=== PATIENT | female | born 1990 | race Caucasian/White ===

== ENCOUNTER 2016-12-17 09:49 | Emergency (ER) | payer MEDICAID, OTHER ==
[~2016-12-17] VITALS: Ht 165.1 cm; Wt 100.0 kg
[2016-12-17] MEDS ORDERED: SODIUM CHLORIDE 0.9% 1,000 ML IV ONE (10:15)
[2016-12-17 10:31] LABS: BASOPHILS % (AUTO) 0.4 % (0.0-2.0); EOSINOPHILS % (AUTO) 0.3 % (1.0-6.0); HEMATOCRIT 42.8 % (36-46); HEMOGLOBIN 13.8 g/dL (12.0-16.0); LYMPHOCYTES # (AUTO) 0.8 K/uL (1.0-4.8); LYMPHOCYTES % (AUTO) 11.2 % (22.0-44.0); MEAN CORPUSCULAR HEMOGLOBIN 27.5 pg (26.0-34.0); MEAN CORPUSCULAR HGB CONC 32.2 G/dL (31.0-37.0); MEAN CORPUSCULAR VOLUME 85 fL (80-100); MONOCYTES # (AUTO) 0.4 K/uL (0.1-1.0); MONOCYTES % (AUTO) 5.5 % (2.0-9.0); NEUTROPHILS # (AUTO) 5.9 K/uL (1.8-7.7); NEUTROPHILS % (AUTO) 82.6 % (40.0-70.0); PLATELET COUNT (AUTO) 295 K/uL (150-450); RED BLOOD CELL COUNT(AUTO) 5.01 MIL/uL (4.00-5.20); RED CELL DISTRIBUTION WIDTH 12.7 % (11.5-14.5); WHITE BLOOD COUNT (AUTO) 7.2 K/uL (4.5-11.0)
[2016-12-17 10:48] LABS: ANION GAP 9 mmol/L (8-16); CALCIUM, TOTAL 8.5 mg/dL (8.8-10.5); CARBON DIOXIDE 27 mmol/L (22-29); CHLORIDE 100 mmol/L (98-107); CREATININE 1.04 mg/dL (0.60-1.30); GLOMERULAR FILTR. RATE CALC > 60 mL/min (>60); SODIUM SERUM 136 mmol/L (136-145); UREA NITROGEN, BLOOD 9 mg/dL (7-18)
[2016-12-17 10:52] LABS: ALANINE AMINOTRANSFERASE 39 U/L (12-78); ALBUMIN 3.7 g/dL (3.4-5.0); ASPARTATE AMINOTRANSFERASE 22 U/L (15-37); BILIRUBIN,TOTAL 0.3 mg/dL (0.1-1.0); TOTAL PROTEIN, SERUM 7.8 g/dL (6.4-8.2)
[2016-12-17] MEDS ORDERED: MECLIZINE HCL 25 MG TABLET PO ONE (11:00)
[2016-12-17 11:11] LABS: APPEARANCE,URINE CLOUDY (CLEAR); GLUCOSE, URINE (UA) NEGATIVE (NEGATIVE); KETONES,URINE NEGATIVE (NEGATIVE); LEUKOCYTE ESTERASE ,URINE SMALL (NEGATIVE); OCCULT BLOOD,URINE TRACE (NEGATIVE); PROTEIN,URINE NEGATIVE (NEGATIVE)
[2016-12-17 11:20] LABS: ADD UA MICROSCOPIC YES
[2016-12-17 11:24] LABS: RBC,URINE 0-2 /HPF (0-2); SQUAMOUS EPITHELIAL CELL,UR Many /LPF (None Seen)
[2016-12-17] MEDS ORDERED: KETOROLAC TROMETHAMINE 60 MG/2 ML VIAL IM ONE (13:00)
[2016-12-17 13:02] VITALS: BP 102/58
[2016-12-17] MEDS ORDERED: KETOROLAC TROMETHAMINE 30 MG/ML VIAL IVP ONE (13:15)
[2016-12-17] MEDS ORDERED: ACETAMINOPHEN 500 MG TABLET PO ONE (14:00)
== END 2016-12-17 13:57 | disposition home or self-care (01) ==
LOC: EMS 09:50
DX: H81.313 Aural vertigo, bilateral (principal)
CPT/HCPCS: 36415; 70450; 80053; 81001; 84703; 85025; 93005; 96361; 96374; 99285; J1885; J7030

== ENCOUNTER 2017-02-24 08:23 | Emergency (ER) | payer OTHER ==
[~2017-02-24] VITALS: Ht 162.6 cm; Wt 127.0 kg
[2017-02-24] MEDS ORDERED: ONDANSETRON HCL 4 MG/2 ML VIAL IVP ONE (08:45)
[2017-02-24] MEDS ORDERED: SODIUM CHLORIDE 0.9% 1,000 ML IV ONE (08:45)
[2017-02-24] MEDS ORDERED: DIPHENOXYLATE/ATROP 2.5-0.025 MG TABLET PO ONE (08:45)
[2017-02-24 08:56] LABS: BASOPHILS # (AUTO) 0.04 K/uL (0.00-0.20); BASOPHILS % (AUTO) 0.5 % (0.0-2.0); EOSINOPHILS # (AUTO) 0.06 K/uL (0.00-0.70); EOSINOPHILS % (AUTO) 0.69 % (1.0-6.0); HEMATOCRIT 39.2 % (36-46); HEMOGLOBIN 13.1 g/dL (12.0-16.0); LYMPHOCYTES # (AUTO) 2.4 K/uL (1.0-4.8); LYMPHOCYTES % (AUTO) 28.2 % (22.0-44.0); MEAN CORPUSCULAR HEMOGLOBIN 28.4 pg (26.0-34.0); MEAN CORPUSCULAR HGB CONC 33.4 G/dL (31.0-37.0); MEAN CORPUSCULAR VOLUME 85 fL (80-100); MONOCYTES # (AUTO) 0.7 K/uL (0.1-1.0); MONOCYTES % (AUTO) 7.6 % (2.0-9.0); NEUTROPHILS # (AUTO) 5.4 K/uL (1.8-7.7); NEUTROPHILS % (AUTO) 63.1 % (40.0-70.0); PLATELET COUNT (AUTO) 307 K/uL (150-450); RED CELL DISTRIBUTION WIDTH 13.5 % (11.5-14.5); WHITE BLOOD COUNT (AUTO) 8.6 K/uL (4.5-11.0)
[2017-02-24 09:12] LABS: ANION GAP 10 mmol/L (8-16); CALCIUM, TOTAL 8.8 mg/dL (8.8-10.5); CARBON DIOXIDE 28 mmol/L (22-29); CHLORIDE 103 mmol/L (98-107); CREATININE 0.84 mg/dL (0.60-1.30); GLOMERULAR FILTR. RATE CALC > 60 mL/min (>60); POTASSIUM 3.3 mmol/L (3.5-5.1); SODIUM SERUM 141 mmol/L (136-145); UREA NITROGEN, BLOOD 7 mg/dL (7-18)
[2017-02-24 09:19] LABS: ALANINE AMINOTRANSFERASE 37 U/L (12-78); ALBUMIN 3.3 g/dL (3.4-5.0); ASPARTATE AMINOTRANSFERASE 23 U/L (15-37); BILIRUBIN,TOTAL 0.4 mg/dL (0.1-1.0); TOTAL PROTEIN, SERUM 7.5 g/dL (6.4-8.2)
[2017-02-24 10:52] LABS: APPEARANCE,URINE CLOUDY (CLEAR); GLUCOSE, URINE (UA) NEGATIVE (NEGATIVE); KETONES,URINE NEGATIVE (NEGATIVE); LEUKOCYTE ESTERASE ,URINE SMALL (NEGATIVE); OCCULT BLOOD,URINE NEGATIVE (NEGATIVE); PROTEIN,URINE NEGATIVE (NEGATIVE)
[2017-02-24 10:54] LABS: ADD UA MICROSCOPIC YES
[2017-02-24 10:57] LABS: RBC,URINE 0-2 /HPF (0-2); SQUAMOUS EPITHELIAL CELL,UR Many /LPF (None Seen)
[2017-02-24 11:38] VITALS: BP 107/69
== END 2017-02-24 13:36 | disposition home or self-care (01) ==
LOC: EMS 08:25
DX: R11.10 Vomiting, unspecified (principal); R19.7 Diarrhea, unspecified; R10.30 Lower abdominal pain, unspecified; R10.31 Right lower quadrant pain
CPT/HCPCS: 36415; 80053; 81001; 83690; 84703; 85025; 87086; 96361; 96374; 99285; J2405; J7030

== ENCOUNTER 2017-04-11 20:17 | Emergency (ER) | payer OTHER ==
[~2017-04-11] VITALS: Ht 162.6 cm; Wt 109.1 kg
[2017-04-11 20:56] LABS: BASOPHILS % (AUTO) 0.7 % (0.0-2.0); EOSINOPHILS % (AUTO) 0.6 % (1.0-6.0); LYMPHOCYTES # (AUTO) 2.9 K/uL (1.0-4.8); LYMPHOCYTES % (AUTO) 26.6 % (22.0-44.0); MEAN CORPUSCULAR HEMOGLOBIN 28.1 pg (26.0-34.0); MEAN CORPUSCULAR HGB CONC 33.3 G/dL (31.0-37.0); MEAN CORPUSCULAR VOLUME 84 fL (80-100); MONOCYTES # (AUTO) 0.4 K/uL (0.1-1.0); MONOCYTES % (AUTO) 3.6 % (2.0-9.0); NEUTROPHILS # (AUTO) 7.5 K/uL (1.8-7.7); NEUTROPHILS % (AUTO) 68.5 % (40.0-70.0); PLATELET COUNT (AUTO) 386 K/uL (150-450); RED BLOOD CELL COUNT(AUTO) 4.97 MIL/uL (4.00-5.20)
[2017-04-11 21:04] LABS: ANION GAP 9 mmol/L (8-16); CARBON DIOXIDE 30 mmol/L (22-29); CHLORIDE 103 mmol/L (98-107); CREATININE 0.86 mg/dL (0.60-1.30); GLOMERULAR FILTR. RATE CALC > 60 mL/min (>60); POTASSIUM 3.8 mmol/L (3.5-5.1); SODIUM SERUM 142 mmol/L (136-145); UREA NITROGEN, BLOOD 8 mg/dL (7-18)
[2017-04-11 21:10] LABS: ALANINE AMINOTRANSFERASE 36 U/L (12-78); ALBUMIN 3.8 g/dL (3.4-5.0); ASPARTATE AMINOTRANSFERASE 17 U/L (15-37); BILIRUBIN,TOTAL 0.2 mg/dL (0.1-1.0)
[2017-04-11 22:06] VITALS: BP 117/75
[2017-04-11] MEDS ORDERED: ONDANSETRON HCL 4 MG TABLET PO ONE (22:15)
== END 2017-04-11 22:36 | disposition home or self-care (01) ==
LOC: EMS 20:17
DX: R42 Dizziness and giddiness (principal); R11.2 Nausea with vomiting, unspecified; R63.0 Anorexia
CPT/HCPCS: 36415; 80053; 84703; 85025; 93005; 99285; Q0162

== ENCOUNTER 2017-11-23 02:00 | Observation (INO) | payer MEDICAID, OTHER ==
[~2017-11-23] VITALS: Ht 160 cm
[2017-11-23 03:01] LABS: APPEARANCE,URINE CLOUDY (CLEAR); BILIRUBIN,URINE NEGATIVE (NEGATIVE); GLUCOSE, URINE (UA) NEGATIVE (NEGATIVE); KETONES,URINE NEGATIVE (NEGATIVE); LEUKOCYTE ESTERASE ,URINE SMALL (NEGATIVE); NITRATE,URINE NEGATIVE (NEGATIVE); OCCULT BLOOD,URINE NEGATIVE (NEGATIVE); PH,URINE 6.5 (5.0-8.0); PROTEIN,URINE NEGATIVE (NEGATIVE); UROBILINOGEN,URINE 0.2 mg/dL (<=1.0)
[2017-11-23] MEDS ORDERED: RINGERS SOLUTION,LACTATED 1,000 ML IV ONE (03:06)
[2017-11-23] MEDS ORDERED: RINGERS SOLUTION,LACTATED 1,000 ML IV SCH (03:15)
[2017-11-23 03:20] LABS: AMORPHOUS SEDIMENT,UR Few /LPF (None Seen); BACTERIA,URINE Rare /HPF (None Seen); RBC,URINE 0-2 /HPF (0-2); SQUAMOUS EPITHELIAL CELL,UR Moderate /LPF (None Seen)
[2017-11-23] MEDS ORDERED: BUPIVACAINE HCL/PF 0.5% 10 ML VIAL ONE (03:32)
[2017-11-23 04:00] VITALS: BP 114/71
[2017-11-23] MEDS ORDERED: PREN1TAB80 PO (04:02)
== END 2017-11-23 05:10 | disposition home or self-care (01) ==
LOC: 4S 02:00
PROVIDERS: ADMIT Obstetrics & Gynecology; ATTEND Obstetrics & Gynecology
DX: O26.893 Other specified pregnancy related conditions, third trimester (principal); R10.13 Epigastric pain; M54.9 Dorsalgia, unspecified; O21.0 Mild hyperemesis gravidarum; Z3A.29 29 weeks gestation of pregnancy
CPT/HCPCS: 59025; 76705; 76805; 80307 ×8; 81001; 96360; 96361; G0378; J3490; J7120

== ENCOUNTER 2018-11-10 07:50 | Emergency (ER) | payer MEDICAID, OTHER ==
[~2018-11-10] VITALS: Ht 165.1 cm; Wt 109.1 kg
[~2018-11-10 07:50] MED LIST: PREN1TAB80 PO
[2018-11-10] MEDS ORDERED: KETOROLAC TROMETHAMINE 60 MG/2 ML VIAL IM ONE (09:15)
[2018-11-10 10:43] VITALS: BP 102/84
== END 2018-11-10 10:45 | disposition home or self-care (01) ==
LOC: EMS 07:52
DX: R07.89 Other chest pain (principal); R05 Cough
CPT/HCPCS: 71046; 96372; 99283; J1885

== ENCOUNTER 2019-03-16 22:04 | Emergency (ER) | payer MEDICAID | END 2019-03-17 01:40 | disposition left against medical advice (07) | LOC: EMS 22:06 | DX: R10.9 Unspecified abdominal pain (principal); R42 Dizziness and giddiness; Z53.21 Procedure and treatment not carried out due to patient leaving prior to being seen by health care provider ==

== ENCOUNTER 2019-08-16 11:03 | Emergency (ER) | payer MEDICAID, OTHER ==
[~2019-08-16] VITALS: Ht 162.6 cm; Wt 121.4 kg
[2019-08-16] MEDS ORDERED: IBUP-2271 PO (11:13)
[2019-08-16 13:12] LABS: BASOPHILS % (AUTO) 0.6 % (0.0-2.0); EOSINOPHILS % (AUTO) 1.2 % (1.0-6.0); HEMATOCRIT 37.7 % (36-46); HEMOGLOBIN 12.3 g/dL (12.0-16.0); LYMPHOCYTES % (AUTO) 29.7 % (22.0-44.0); MEAN CORPUSCULAR HEMOGLOBIN 24.8 pg (26.0-34.0); MEAN CORPUSCULAR HGB CONC 32.5 G/dL (31.0-37.0); MEAN CORPUSCULAR VOLUME 76 fL (80-100); MONOCYTES # (AUTO) 0.6 K/uL (0.1-1.0); MONOCYTES % (AUTO) 6.1 % (2.0-9.0); NEUTROPHILS # (AUTO) 6.3 K/uL (1.8-7.7); NEUTROPHILS % (AUTO) 62.4 % (40.0-70.0); PLATELET COUNT (AUTO) 429 K/uL (150-450); RED BLOOD CELL COUNT(AUTO) 4.95 MIL/uL (4.00-5.20); RED CELL DISTRIBUTION WIDTH 15.8 % (11.5-14.5)
[2019-08-16 14:22] VITALS: BP 139/85
== END 2019-08-16 15:13 | disposition left against medical advice (07) ==
LOC: EMS 11:05
DX: N93.9 Abnormal uterine and vaginal bleeding, unspecified (principal); Z53.21 Procedure and treatment not carried out due to patient leaving prior to being seen by health care provider

== ENCOUNTER 2019-08-30 17:04 | Emergency (ER) | payer OTHER ==
[~2019-08-30] VITALS: Ht 165.1 cm; Wt 127.3 kg
[~2019-08-30 17:04] MED LIST changes: +IBUP-2271 PO; -PREN1TAB80 PO
[2019-08-30] MEDS ORDERED: KETOROLAC TROMETHAMINE 60 MG/2 ML VIAL IM ONE (17:30)
[2019-08-30 18:30] VITALS: BP 109/68
== END 2019-08-30 18:32 | disposition home or self-care (01) ==
LOC: EMS 17:04
DX: S92.512A Displaced fracture of proximal phalanx of left lesser toe(s), initial encounter for closed fracture (principal); Z90.49 Acquired absence of other specified parts of digestive tract; Z98.890 Other specified postprocedural states; W10.8XXA Fall (on) (from) other stairs and steps, initial encounter; Y93.01 Activity, walking, marching and hiking; Y92.89 Other specified places as the place of occurrence of the external cause; Y99.8 Other external cause status
CPT/HCPCS: 73630; 96372; 99283; J1885

== ENCOUNTER 2019-12-31 17:45 | Emergency (ER) | payer OTHER ==
[~2019-12-31] VITALS: Ht 165.1 cm; Wt 125.5 kg
[2019-12-31] MEDS ORDERED: SODIUM CHLORIDE 0.9% 1,000 ML IV ONE (19:15)
[2019-12-31 19:19] LABS: BASOPHILS % (AUTO) 0.8 % (0.0-2.0); HEMATOCRIT 38.3 % (36-46); HEMOGLOBIN 12.4 g/dL (12.0-16.0); LYMPHOCYTES # (AUTO) 3.6 K/uL (1.0-4.8); LYMPHOCYTES % (AUTO) 35.4 % (22.0-44.0); MEAN CORPUSCULAR HEMOGLOBIN 24.6 pg (26.0-34.0); MEAN CORPUSCULAR HGB CONC 32.3 G/dL (31.0-37.0); MEAN CORPUSCULAR VOLUME 76 fL (80-100); MONOCYTES # (AUTO) 0.5 K/uL (0.1-1.0); MONOCYTES % (AUTO) 5.3 % (2.0-9.0); NEUTROPHILS # (AUTO) 5.8 K/uL (1.8-7.7); NEUTROPHILS % (AUTO) 57.5 % (40.0-70.0); PLATELET COUNT (AUTO) 393 K/uL (150-450); RED BLOOD CELL COUNT(AUTO) 5.03 MIL/uL (4.00-5.20); RED CELL DISTRIBUTION WIDTH 15.4 % (11.5-14.5)
[2019-12-31 19:31] LABS: ANION GAP 9 mmol/L (8-16); CALCIUM, TOTAL 8.9 mg/dL (8.8-10.5); CARBON DIOXIDE 30 mmol/L (22-29); CHLORIDE 100 mmol/L (98-107); CREATININE 0.79 mg/dL (0.60-1.30); GLOMERULAR FILTR. RATE CALC > 60 mL/min (>60); GLUCOSE,RANDOM 112 mg/dL (70-110); POTASSIUM 3.9 mmol/L (3.5-5.1); SODIUM SERUM 139 mmol/L (136-145); UREA NITROGEN, BLOOD 8 mg/dL (7-18)
[2019-12-31 19:51] LABS: B-TYPE NATRIURETIC PEPTIDE 13 pg/mL (0-100)
[2019-12-31 19:59] LABS: ALANINE AMINOTRANSFERASE 42 U/L (12-78); ALBUMIN 3.6 g/dL (3.4-5.0); ALKALINE PHOSPHATASE 63 U/L (46-116); ASPARTATE AMINOTRANSFERASE 20 U/L (15-37); BILIRUBIN,TOTAL 0.2 mg/dL (0.1-1.0); CREATINE KINASE, TOTAL ONLY 93 U/L (26-192); HCG,QUANTITATIVE < 1 mIU/mL (0-6); TOTAL PROTEIN, SERUM 7.7 g/dL (6.4-8.2)
[2019-12-31 20:13] LABS: D-DIMER 0.41 mg/L FEU (0.00-0.50)
[2019-12-31 20:23] LABS: PROTHROMBIN TIME 9.9 SEC (9.4-11.6)
[2019-12-31] MEDS ORDERED: KETOROLAC TROMETHAMINE 30 MG/ML VIAL IVP ONE (20:30)
[2019-12-31 20:52] LABS: FREE T4 (FREE THYROXINE) 0.94 ng/dL (0.76-1.46); THYROID STIMULATING HORMONE 2.27 uIU/mL (0.36-3.74)
[2019-12-31 21:57] VITALS: BP 110/80
== END 2019-12-31 21:47 | disposition left against medical advice (07) ==
LOC: EMS 18:05
DX: R42 Dizziness and giddiness (principal); R60.0 Localized edema; R07.89 Other chest pain; M79.604 Pain in right leg; M79.605 Pain in left leg; Z90.89 Acquired absence of other organs
CPT/HCPCS: 36415; 71045; 80053; 82550; 83735; 83880; 84439; 84443; 84484; 84702; 85025; 85379; 85610; 85730; 93005; 96361; 96374; 99285; J1885; J7030